=== PATIENT | female | born 1985 | race Two or more races ===

== ENCOUNTER 2018-07-03 17:49 | Inpatient (IN) | payer SELFPAY ==
[~2018-07-03] VITALS: Ht 160 cm; Wt 104.3 kg
[2018-07-03] MEDS ORDERED: 0.9 % SODIUM CHLORIDE 10 ML DISP.SYRIN. IV PRN (19:00)
[2018-07-03] MEDS ORDERED: OXYTOCIN 30 UNIT/500 ML PREMIX 500 ML IV PRN (19:00)
[2018-07-03] MEDS ORDERED: diphenhydrAMINE HCL 25 MG CAPSULE PO PRN (19:00)
[2018-07-03] MEDS ORDERED: TERBUTALINE 1 MG/ML VIAL. SQ PRN (19:00)
[2018-07-03] MEDS ORDERED: fentaNYL PF VIAL 100 MCG/2 ML VIAL IV PRN (19:00)
[2018-07-03] MEDS ORDERED: IBUPROFEN 800 MG TABLET. PO PRN (19:00)
[2018-07-03] MEDS ORDERED: LIDOCAINE 1% PF 30 ML VIAL. INJ PRN (19:00)
[2018-07-03] MEDS ORDERED: ONDANSETRON PF 4 MG/2 ML VIAL. IV PRN (19:00)
[2018-07-03] MEDS ORDERED: BUTORPHANOL 2 MG/ML VIAL. IV PRN ×2 (19:00)
[2018-07-03 19:11] LABS: BILIRUBIN,URINE NEGATIVE (NEG); CLARITY,URINE CLEAR; COLOR,URINE YELLOW; NITRITE,URINE NEGATIVE (NEG); PH,URINE 6.5; PROTEIN,URINE NEGATIVE (NEG-TRACE); UROBILINOGEN,URINE 0.2 mg/dL (0.2 mg/dL)
[2018-07-03] MEDS ORDERED: DINOPROSTONE 10 MG SUPP.VAG VG ONE (19:30)
[2018-07-03 19:40] LABS: BACTERIA,URINE MANY /HPF (0-FEW); SQUAMOUS EPITHELIAL CELL,UR FEW /LPF; WBC,URINE 20-40 /HPF (0-4)
[2018-07-03] MEDS: IV RINGERS,LACTATED 1000ML 1,000 ML IV SCH (19:52)
[2018-07-03 20:08] LABS: BASO # 0.1 x10^3/uL (0.0-0.2); BASO % 1 % (0-3); EOS # 0.2 x10^3/uL (0.0-0.7); EOS % 2 % (0-3); HEMATOCRIT 33.6 % (36.0-47.0); HEMOGLOBIN 11.4 g/dL (12.0-15.5); LYMPH # 1.7 x10^3/uL (1.0-4.8); LYMPH % 19 % (24-48); MEAN CORPUSCULAR HEMOGLOBIN 28 pg (25-35); MEAN CORPUSCULAR HGB CONC 34 g/dL (31-37); MEAN CORPUSCULAR VOLUME 82 fL (79-100); MONO # 0.6 x10^3/uL (0.0-1.1); MONO % 7 % (0-9); NEUT # 6.4 x10^3uL (1.8-7.7); NEUT % 71 % (31-73); PLATELET COUNT 252 x10^3/uL (140-400); RED BLOOD COUNT 4.11 x10^6/uL (3.50-5.40); RED CELL DISTRIBUTION WIDTH 15.5 % (11.5-14.5)
[2018-07-03] MEDS: glyBURIDE 5 MG TABLET PO SCH (21:13)
[2018-07-03 21:17] VITALS: BP 132/77
[2018-07-04] MEDS ORDERED: PENICILLIN G K 5,000,000 UNIT in IV DEXTROSE 5% 100ML 100 ML IV ONE ×2
[2018-07-04] MEDS: PENICILLIN G K 2,500,000 UNIT in IV DEXTROSE 5% 50 ML IV SCH ×5 (03:41→20:00)
[2018-07-04] MEDS ORDERED: OXYTOCIN 30 UNIT/500 ML PREMIX 500 ML IV PRN ×2 (06:00→17:30)
[2018-07-04] MEDS: IV RINGERS,LACTATED 1000ML 1,000 ML IV SCH ×3 (06:06→20:00)
--- NOTE | 2018-07-04 08:05 | PDOC1 ---
OB - History Hx of Present Care: Good Care Ultrasounds: Normal mid trimester US Obstetrical Complications: None Medical Complications: None Past Family/Social History * Past Medical, Surgical, Family and Obstetric Histories reviewed from chart. Rubella: Immune RPR/VDRL: Negative GBS Status: Positive HBsAG: Negative OB - Chief Complaint & HPI Date of Admission: Date of Admission: Jul 03, 2018 at 17:49 Chief Complaint/History : 6 Para: 5 EGA: 39 Reason for admission: section Indication for : desires repeat OB - Admission Exam Physical Exam Vitals: VS - Last 72 Hours, by Label Date Time Temp Pulse Resp B/P (MAP) Pulse Ox O2 Delivery O2 Flow Rate FiO2 07/03/18 21:17 99.4 103 20 132/77 (95) 98 Room Air 99.4 HEENT: Normal Heart: Regular Rate Lungs: Clear Abdomen: Gravid, Non tender, Soft Extremities: Edema Reflexes: Normal Cervical Dilatation: 1cm Effacement: 50% Station: -3 Membranes: Intact Accelerations: Accelerations Present Decelerations: No decelerations Contractions on Admission: >10 Minutes Apart Intensity: Mild Text A: 39 wks IUP Previous c/s x 5 GBS positive Desires BTL P: Admit for repeat c/s and BTL. Counseled on possible hysterectomy as well. FERDINAND FRANKEL Jr, MD Jul 04, 2018 08:05
--- NOTE | 2018-07-04 08:08 | PDOC1 ---
OB - History Hx of Present Care: Good Care Ultrasounds: Normal mid trimester US Obstetrical Complications: Gestational Diabetes Medical Complications: None Past Family/Social History * Past Medical, Surgical, Family and Obstetric Histories reviewed from chart. Rubella: Immune RPR/VDRL: Negative GBS Status: Positive HBsAG: Negative OB - Chief Complaint & HPI Date of Admission: Date of Admission: Jul 03, 2018 at 17:49 Chief Complaint/History : 2 Para: 1 EGA: 39 Reason for admission: induction of labor Admission Nurse Assessment Rev: Yes OB - Admission Exam Physical Exam Vitals: VS - Last 72 Hours, by Label Date Time Temp Pulse Resp B/P (MAP) Pulse Ox O2 Delivery O2 Flow Rate FiO2 07/03/18 21:17 99.4 103 20 132/77 (95) 98 Room Air 99.4 HEENT: Normal Heart: Regular Rate Lungs: Clear Abdomen: Gravid, Non tender, Soft Extremities: Edema Reflexes: Normal Cervical Dilatation: 1cm Effacement: 50% Station: -3 Membranes: Intact Accelerations: Accelerations Present Decelerations: No decelerations Contractions on Admission: >10 Minutes Apart Intensity: Mild Text A: 39 wks IUP GDM A2 GBS positive P: Admit for IOL cervidil, then pitocin augmentation. FERDINAND FRANKEL Jr, MD Jul 04, 2018 08:08
[2018-07-04] MEDS: metFORMIN 500 MG TABLET PO SCH (09:34)
--- NOTE | 2018-07-04 17:23 | PDOC ---
VAGINAL DELIVERY DATE DATE: 07/04/18 TIME: 17:21 : 2 Para: 2 EGA: 39 VAGINAL DELIVERY: VTX VACCUM ASSISTED: No PLACENTA: Spontaneous 8/9 SEX: Male WEIGHT Weight [ 3350 gm] Nuchal Cord: Yes, Times 1 Amniotic Fluid: Clear PAIN: Natural EPISIOTOMY: No EXTENSION: Yes (1st degree midline laceration; hemostatic) REPAIRED WITH none; hemostatic EBL 400 ml COMPLICATIONS none CONDITION pt. stable Signs of Intrauterine Infectio: None Shoulder Dystocia: No FERDINAND FRANKEL Jr, MD Jul 04, 2018 17:23
[2018-07-04] MEDS ORDERED: oxyCODONE/APAP 5/325 1 TAB TABLET PO PRN (17:30)
[2018-07-04] MEDS ORDERED: diphenhydrAMINE HCL 25 MG CAPSULE PO PRN (17:30)
[2018-07-04] MEDS ORDERED: IBUPROFEN 800 MG TABLET. PO PRN (17:30)
[2018-07-04] MEDS ORDERED: DOCUSATE SODIUM 100 MG CAPSULE. PO PRN (17:30)
[2018-07-04] MEDS ORDERED: 0.9 % SODIUM CHLORIDE 10 ML DISP.SYRIN. IV PRN (17:30)
[2018-07-04] MEDS ORDERED: SIMETHICONE 80 MG TAB.CHEW PO PRN (17:30)
[2018-07-04] MEDS ORDERED: BENZOCAINE 20% TOPICAL AEROSOL SPRAY 57GM CAN. TP PRN (17:30)
[2018-07-04] MEDS ORDERED: ZOLPIDEM 5 MG TABLET. PO PRN (17:30)
[2018-07-04] MEDS ORDERED: MAGNESIUM HYDROXIDE 2,400 MG/30 ML ORAL.SUSP. PO PRN (17:30)
[2018-07-04] MEDS ORDERED: MMR per PROTOCOL. MC PRN (17:30)
[2018-07-04] MEDS ORDERED: MAG HYDROX/ALUMINUM HYD/SIMETH 30 ML ORAL.SUSP PO PRN (17:30)
[2018-07-04] MEDS ORDERED: HYDROCORTISONE 1% TOPICAL OINTMENT 30GM TUBE. TP PRN (17:30)
[2018-07-04] MEDS ORDERED: PHENYLEPH/MINERAL OIL/PETROLAT RECTAL OINTMENT 28GM TUBE. RC PRN (17:30)
[2018-07-04] MEDS ORDERED: ACETAMINOPHEN 325 MG TABLET. PO PRN (17:30)
[2018-07-04 20:10] VITALS: BP 122/85
[2018-07-04] MEDS: glyBURIDE 5 MG TABLET PO SCH (21:00)
[2018-07-04 21:20] VITALS: BP 113/80
[2018-07-05 00:36] VITALS: BP 125/82
[2018-07-05] MEDS: IV RINGERS,LACTATED 1000ML 1,000 ML IV SCH (04:00)
[2018-07-05] MEDS: PENICILLIN G K 2,500,000 UNIT in IV DEXTROSE 5% 50 ML IV SCH ×3 (04:00)
[2018-07-05 06:15] VITALS: BP 120/86
[2018-07-05 06:53] LABS: BASO % 0 % (0-3); EOS # 0.1 x10^3/uL (0.0-0.7); EOS % 1 % (0-3); HEMATOCRIT 30.6 % (36.0-47.0); HEMOGLOBIN 10.4 g/dL (12.0-15.5); LYMPH # 2.2 x10^3/uL (1.0-4.8); LYMPH % 20 % (24-48); MEAN CORPUSCULAR HEMOGLOBIN 28 pg (25-35); MEAN CORPUSCULAR HGB CONC 34 g/dL (31-37); MEAN CORPUSCULAR VOLUME 82 fL (79-100); MONO # 0.8 x10^3/uL (0.0-1.1); MONO % 8 % (0-9); NEUT # 7.7 x10^3uL (1.8-7.7); NEUT % 71 % (31-73); PLATELET COUNT 212 x10^3/uL (140-400); RED BLOOD COUNT 3.72 x10^6/uL (3.50-5.40); RED CELL DISTRIBUTION WIDTH 15.8 % (11.5-14.5); WHITE BLOOD COUNT 10.8 x10^3/uL (4.0-11.0)
[2018-07-05] MEDS: metFORMIN 500 MG TABLET PO SCH (08:00)
[2018-07-05] MEDS ORDERED: FERROUS SULFATE 325 MG TABLET. PO SCH (08:00)
--- NOTE | 2018-07-05 08:24 | PDOC ---
OB Progress Note Date of Service 07/05/18 Time of Evaluation 0820 Notes Pt. feeling well. No complaints. Lab Laboratory Tests Test 07/03/18 18:40 07/03/18 19:40 07/05/18 06:16 Urine Collection Type Unknown Urine Color Yellow Urine Clarity Clear Urine pH 6.5 Urine Specific [place] >=1.030 Urine Protein Negative mg/dL (NEG-TRACE) Urine Glucose (UA) Negative mg/dL (NEG) Urine Ketones (Stick) Trace mg/dL (NEG) Urine Blood Negative (NEG) Urine Nitrite Negative (NEG) Urine Bilirubin Negative (NEG) Urine Urobilinogen Dipstick 0.2 mg/dL (0.2 mg/dL) Urine Leukocyte Esterase Small (NEG) Urine RBC 1-2 /HPF (0-2) Urine WBC 20-40 /HPF (0-4) Urine Squamous Epithelial Cells Few /LPF Urine Bacteria Many /HPF (0-FEW) White Blood Count 9.0 x10^3/uL (4.0-11.0) 10.8 x10^3/uL (4.0-11.0) Red Blood Count 4.11 x10^6/uL (3.50-5.40) 3.72 x10^6/uL (3.50-5.40) Hemoglobin 11.4 g/dL (12.0-15.5) 10.4 g/dL (12.0-15.5) Hematocrit 33.6 % (36.0-47.0) 30.6 % (36.0-47.0) Mean Corpuscular Volume 82 fL (79-100) 82 fL (79-100) Mean Corpuscular Hemoglobin 28 pg (25-35) 28 pg (25-35) Mean Corpuscular Hemoglobin Concent 34 g/dL (31-37) 34 g/dL (31-37) Red Cell Distribution Width 15.5 % (11.5-14.5) 15.8 % (11.5-14.5) Platelet Count 252 x10^3/uL (140-400) 212 x10^3/uL (140-400) Neutrophils (%) (Auto) 71 % (31-73) 71 % (31-73) Lymphocytes (%) (Auto) 19 % (24-48) 20 % (24-48) Monocytes (%) (Auto) 7 % (0-9) 8 % (0-9) Eosinophils (%) (Auto) 2 % (0-3) 1 % (0-3) Basophils (%) (Auto) 1 % (0-3) 0 % (0-3) Neutrophils # (Auto) 6.4 x10^3uL (1.8-7.7) 7.7 x10^3uL (1.8-7.7) Lymphocytes # (Auto) 1.7 x10^3/uL (1.0-4.8) 2.2 x10^3/uL (1.0-4.8) Monocytes # (Auto) 0.6 x10^3/uL (0.0-1.1) 0.8 x10^3/uL (0.0-1.1) Eosinophils # (Auto) 0.2 x10^3/uL (0.0-0.7) 0.1 x10^3/uL (0.0-0.7) Basophils # (Auto) 0.1 x10^3/uL (0.0-0.2) 0.0 x10^3/uL (0.0-0.2) Glucose Level 88 mg/dL (70-99) Laboratory Tests Test 07/05/18 06:16 White Blood Count 10.8 x10^3/uL (4.0-11.0) Red Blood Count 3.72 x10^6/uL (3.50-5.40) Hemoglobin 10.4 g/dL (12.0-15.5) Hematocrit 30.6 % (36.0-47.0) Mean Corpuscular Volume 82 fL (79-100) Mean Corpuscular Hemoglobin 28 pg (25-35) Mean Corpuscular Hemoglobin Concent 34 g/dL (31-37) Red Cell Distribution Width 15.8 % (11.5-14.5) Platelet Count 212 x10^3/uL (140-400) Neutrophils (%) (Auto) 71 % (31-73) Lymphocytes (%) (Auto) 20 % (24-48) Monocytes (%) (Auto) 8 % (0-9) Eosinophils (%) (Auto) 1 % (0-3) Basophils (%) (Auto) 0 % (0-3) Neutrophils # (Auto) 7.7 x10^3uL (1.8-7.7) Lymphocytes # (Auto) 2.2 x10^3/uL (1.0-4.8) Monocytes # (Auto) 0.8 x10^3/uL (0.0-1.1) Eosinophils # (Auto) 0.1 x10^3/uL (0.0-0.7) Basophils # (Auto) 0.0 x10^3/uL (0.0-0.2) Medications Current Medications Sodium Chloride (Normal Saline Flush) 3 ml QSHIFT PRN IV AFTER MEDS AND BLOOD DRAWS; Start 07/03/18 at 19:00 Ringer's Solution 1,000 ml @ 125 mls/hr Q8H IV Last administered on 07/04/18at 15:36; Start 07/03/18 at 20:00; Stop 07/05/18 at 04:50; Status DC Butorphanol Tartrate (Stadol) 1 mg PRN Q1HR PRN IV mild to moderate labor pain ; Start 07/03/18 at 19:00 Butorphanol Tartrate (Stadol) 2 mg PRN Q1HR PRN IV Severe labor pain; Start 07/03/18 at 19:00 Fentanyl Citrate (Fentanyl 2ml Vial) 100 mcg PRN Q30MIN PRN IV Severe pain Last administered on 07/04/18at 17:12; Start 07/03/18 at 19:00 Ondansetron HCl (Zofran) 4 mg PRN Q4HRS PRN IV NAUSEA/VOMITING; Start 07/03/18 at 19:00 Terbutaline Sulfate (Brethine) 0.25 mg 1X PRN PRN SQ SEE COMMENTS; Start at 19:00; Stop 07/04/18 at 18:59; Status DC Lidocaine HCl (Xylocaine 1% Pf 30ml Vial) 30 ml 1X PRN PRN INJ SEE COMMENTS; Start 07/03/18 at 19:00; Stop 07/05/18 at 18:59 Oxytocin/Sodium Chloride 500 ml @ 0 mls/hr CONT PRN IV SEE I/O RECORD Last administered on 07/04/18at 06:06; Start 07/04/18 at 06:00 Oxytocin/Sodium Chloride 500 ml @ 0 mls/hr CONT PRN PRN IV Post delivery bleeding; Start 07/03/18 at 19:00 Ibuprofen (Motrin) 800 mg PRN Q6HRS PRN PO PAIN Last administered on 07/04/18at 19:33; Start 07/03/18 at 19:00 Dinoprostone (Cervidil) 10 mg 1X ONCE VG Last administered on 07/03/18at 19:51; Start 07/03/18 at 19:30; Stop 07/03/18 at 19:31; Status DC Diphenhydramine HCl (Benadryl) 50 mg PRN QHS PRN PO INSOMNIA Last administered on 07/03/18 21:13; Start 07/03/18 at 19:00 Penicillin G Potassium 2699573 unit/Dextrose 100 ml @ 100 mls/hr 1X ONCE IV Last administered on 07/03/18at 23:30; Start 07/04/18 at 00:00; Stop 07/04/18 at 00:59; Status DC Penicillin G Potassium 1914257 unit/Dextrose 50 ml @ 100 mls/hr Q4H IV Last administered on 07/04/18at 16:50; Start 07/04/18 at 04:00; Stop 07/05/18 at 04:50 ; Status DC Metformin HCl (Glucophage) 1,000 mg HS PO Last administered on 07/03/18 21:13; Start 07/03/18 at 21:00 Metformin HCl (Glucophage) 500 mg DAILYWBKFT PO Last administered on 07/04/18at 09:34; Start 07/04/18 at 08:00 Glyburide (Diabeta) 2.5 mg HS PO Last administered on 07/03/18at 21:13; Start 07/03/18 at 21:00 Sodium Chloride (Normal Saline Flush) 10 ml QSHIFT PRN IV AFTER MEDS AND BLOOD DRAWS; Start 07/04/18 at 17:30 Oxytocin/Sodium Chloride 500 ml @ 62.5 mls/hr CONT PRN IV SEE I/O RECORD; Start 07/04/18 at 17:30; Stop 07/05/18 at 01:29; Status DC Acetaminophen (Tylenol) 650 mg PRN Q6HRS PRN PO MILD PAIN / TEMP; Start at 17:30 Ibuprofen (Motrin) 800 mg PRN Q8HRS PRN PO INFLAMMATION/PAIN PREVENTION; Start 07/04/18 at 17:30; Status UNV Docusate Sodium (Colace) 100 mg PRN BID PRN PO HARD STOOLS; Start 07/04/18 at 17:30 Magnesium Hydroxide (Milk Of Magnesia) 2,400 mg PRN DAILY PRN PO CONSTIPATION; Start 07/04/18 at 17:30 Al Hydroxide/Mg Hydroxide (Mylanta Plus Xs) 30 ml PRN Q4HRS PRN PO HEARTBURN / GAS; Start 07/04/18 at 17:30 Simethicone (Gas-X) 80 mg PRN AFTMEALHC PRN PO GAS / BLOATING; Start 07/04/18 at 17:30 Diphenhydramine HCl (Benadryl) 25 mg PRN Q6HRS PRN PO ITCHING; Start 07/04/18 at 17:30 Benzocaine (Americaine) 1 spray PRN QID PRN TP TOPICAL PAIN Last administered on 07/04/18at 19:33; Start 07/04/18 at 17:30 Phenyleph/Shark Oil/Min Oil/Petrol (Preparation H) 1 heather PRN QID PRN RC RECTAL PAIN; Start 07/04/18 at 17:30 Hydrocortisone (Cortaid) 1 heather PRN QID PRN TP PERINEAL PAIN; Start 07/04/18 at 17:30 Ferrous Sulfate (Feosol) 325 mg BIDWMEALS PO ; Start 07/05/18 at 08:00 Zolpidem Tartrate (Ambien) 5 mg PRN QHS PRN PO INSOMNIA, MAY REPEAT X1; Start 07/04/18 at 17:30 Info (Do NOT chart on this placeholder) 1 ea 1X PRN PRN MC SEE COMMENTS; Start 07/04/18 at 17:30 Info (Do NOT chart on this placeholder) 1 ea 1X PRN PRN MC SEE COMMENTS; Start 07/04/18 at 17:30 Oxycodone/ Acetaminophen (Percocet 5/325) 2 tab PRN Q4HRS PRN PO MODERATE PAIN , SEVERE PAIN; Start 07/04/18 at 17:30 Exam Abd: soft, non tender, fundus firm Assessment PPD#1 s/p Plan of Care: Continue current Tx, Mgmt FERDINAND FRANKEL Jr, MD Jul 05, 2018 08:24
[2018-07-05 10:03] VITALS: BP 103/63
[2018-07-05 14:20] VITALS: BP 121/78
[2018-07-05 18:26] VITALS: BP 118/75
[2018-07-05] MEDS: glyBURIDE 5 MG TABLET PO SCH (21:00)
[2018-07-05 22:48] VITALS: BP 139/86
[2018-07-06 03:00] VITALS: BP 123/79
[2018-07-06 05:57] VITALS: BP 135/98
--- NOTE | 2018-07-06 08:37 | PDOC3 ---
OB DISCHARGE SUMMARY DATE OF ADMISSION: 07/03/18 DATE OF DISCHARGE: 07/06/18 REASON FOR ADMISSION: Induction of labor (GDM A2) INTRAPARTUM PROCEDURES: Spontanous Vag Deliv DISCHARGE DIAGNOSIS: Term Delivered DISCHARGE INFORMATION: Activity (ad bijan), Diet (regular), Instructions (pelvic rest x 6 wks) HOSPITAL COURSE term gestation with GDM A2 presented for IOL. She delivered vaginally without complications FERDINAND FRANKEL Jr, MD Jul 06, 2018 08:37
--- NOTE | 2018-07-06 08:38 | DISCH ---
DISCHARGE INSTRUCTIONS Condition on Discharge Condition on Discharge: Stable Activity After Discharge Activity Instructions for Disc: Activity as tolerated Lifting Instructions after Dis: No heavy lifting Driving Instructions after Dis: Do not drive today Diet after Discharge Diet after Discharge: Regular Contacting the DRJoe after DC Call your doctor for: Concerns you may have Follow-Up Follow up with: Lilo in 6 wks FERDINAND FRANKEL Jr, MD Jul 06, 2018 08:38
[2018-07-06] MEDS ORDERED: IBUP800T19 PO (08:39)
[2018-07-06 10:30] VITALS: BP 128/82
[2018-07-06 15:00] VITALS: BP 126/84
--- NOTE | 2018-07-08 16:09 | PATHOLOGY ---
[facility] Accession Number: [id number] . 01 Material submitted: . PLACENTA WITH CORD . 01 Clinical history: . IUP, vaginal delivery Gest diabetes EDC: 07/09/18 Additional history per requisition . 02 Diagnosis: Placenta, vaginal delivery: - Third trimester placenta, 447 grams. - Attached trivascular umbilical cord and membranes without significant inflammation. - Placental parenchyma with focal simple cyst, 0.6 cm. (SKM/db; 07/07/18) LBQ/07/07/2018 . 02 Electronically signed: . Kenneth Jones MD, Pathologist NPI- [id number] . 01 Gross description: . Received in formalin labeled "Wilmar Diallo, placenta," is an ovoid adrian placenta with attached membranes and umbilical cord. The trimmed placental disc weighs 447 g and measures 24.3 x 14.2 by up to 1.9 cm in greatest dimensions. The membranes are pale [place] and slightly edematous in appearance, and the site of the membrane rupture is 5.6 cm from the nearest placental disc edge. The surface is intact and dusky blue-myers in appearance, displaying arborizing vasculature. The trivascular umbilical cord inserts marginally, with a prominent intact vessel extending from the insertion site through the membranes for a linear length of 7.2 cm before insertion into the placental disc. The cord measures 35 cm in length by up to 1.5 cm in diameter and is pale [place] to dusky myers-[place] in appearance, displaying moderate helical twisting. The maternal surface cotyledons are intact and complete. Serial sectioning reveals spongy, dark red-brown cut surfaces. Also noted upon sectioning is a cystic structure filled with translucent, gelatinous yellow-[place] material measuring 0.6 cm in maximum dimension and encompassing less than 1% of the total placental disc volume. The specimen is submitted representatively as follows: . A1: Umbilical cord and intramembranous vessel A2: Membrane roll and peripheral placental segment A3: Full-thickness thickness placental cross section A4: Physician Primary [facility] Sports Medicine cystic structure A5: Physician Primary Care Sports Medicine possible blood clot/hemorrhage (DAC; 07/06/2018) XDC/XDC . 02 Pathologist provided ICD-10: O43.893, Z37.0, Z3A.39 . 02 CPT . 351682 Specimen Comment: A courtesy copy of this report has been sent to Specimen Comment: [phone]. Specimen Comment: Report sent to Performed at: 01 [facility] [address] [address], [place] [id number] MD Hussain Paul MD Phone: [phone] Performed at: 02 [facility] [address] [place], [place] [id number] MD Luis Vincent MD Phone: [phone]
== END 2018-07-06 15:21 | disposition home or self-care (01) | DRG 775 ==
LOC: 3 SO LND 17:49 → 3 NORTH 07-04 20:05
PROVIDERS: ADMIT Obstetrics & Gynecology; ATTEND Obstetrics & Gynecology
PROC: 10E0XZZ Delivery of Products of Conception, External Approach (ICD-10-PCS; principal; 2018-07-03)
PROC: 3E0P7VZ Introduction of Hormone into Female Reproductive, Via Natural or Artificial Opening (ICD-10-PCS; 2018-07-03)
PROC: 3E033VJ Introduction of Other Hormone into Peripheral Vein, Percutaneous Approach (ICD-10-PCS; 2018-07-03)
PROC: 0HQ9XZZ Repair Perineum Skin, External Approach (ICD-10-PCS; 2018-07-03)
DX: O69.81X0 Labor and delivery complicated by cord around neck, without compression, not applicable or unspecified (principal); O24.429 Gestational diabetes mellitus in childbirth, unspecified control; O70.0 First degree perineal laceration during delivery; Z37.0 Single live birth; Z3A.39 39 weeks gestation of pregnancy; Z22.330 Carrier of Group B streptococcus
CPT/HCPCS: 36415; 81001; 82947; 82962; 85025; 86850; 86900; 86901; 87086; J2540; J2590; J3010; J7120; Q0163